=== PATIENT | male | born 1940 | race Caucasian/White ===

== ENCOUNTER → 2016-11-26 | Outpatient (CLI) | payer MEDICARE, OTHER ==
[~2016-11-26] MED LIST: ALBUTEROL2.5 MG/0.5 INH; ASCORBIC ACID500 MG PO; ASPIRIN EC81 MG PO; COLACE100 MG PO; CYMBALTA30 MG PO; DELTASONE20 MG PO; GLUCOPHAGE500 MG PO; GLUCOSAMINE CH1 EAC1 PO; HUMIBID LA (MU600 MG PO; LEVAQUIN 750 M750 MG PO; LEXAPRO10 MG PO; NORCO 5-325 MG1 TAB PO; NORVASC5 MG PO; THERAGRAN-M1 TAB PO; TYLENOL325 MG PO; ZESTRIL40 MG PO
== END | disposition disaster alternative care site (69) ==
LOC: GRAD 10:21
DX: R42 Dizziness and giddiness (principal); R68.89 Other general symptoms and signs; R25.8 Other abnormal involuntary movements; I65.23 Occlusion and stenosis of bilateral carotid arteries
CPT/HCPCS: Q9967